=== PATIENT | female | born 2000 | race Caucasian/White ===

== ENCOUNTER → 2020-07-25 | Outpatient (CLI) | payer BC, OTHER ==
[2020-07-26 08:14] LABS: RHEUMATOID ARTHRITIS FACTOR <10.0 IU/mL (0.0-13.9)
[2020-07-27 00:09] LABS: CCP ANTIBODIES IGG/IGA 10 units (0-19)
== END ==
LOC: LAB 12:08
PROVIDERS: Nurse Practitioner Family
DX: M25.50 Pain in unspecified joint (principal); R76.8 Other specified abnormal immunological findings in serum; R53.83 Other fatigue; M79.10 Myalgia, unspecified site; D89.9 Disorder involving the immune mechanism, unspecified
CPT/HCPCS: 36415; 81001; 82550; 82570; 82728; 83520; 83540; 83550; 84156; 85652; 86140; 86200; 86431